=== PATIENT | male | born 1955 | race African-American/Black ===

== ENCOUNTER → 2016-10-12 | Outpatient (CLI) | payer OTHER | LOC: NM 07:29 | PROVIDERS: ATTEND Internal Medicine Cardiovascular Disease | DX: Z53.8 Procedure and treatment not carried out for other reasons (principal) ==

== ENCOUNTER → 2016-10-20 | Outpatient (CLI) | payer OTHER ==
--- NOTE | 2016-10-21 10:36 | CARD ---
APPROVED REPORT INDICATION Abnormal echo PROCEDURE The patient underwent an exercise Stress Test using the Geoffrey protocol. Blood pressure, heart rate, a nd EKG were monitored. An Echocardiogram was performed by environmental health technician in four stages in quad fashion. At peak stress four se lected images were obtained and placed side by side with resting images for comparison. STRESS ECHO FINDINGS The resting Echocardiogram showed normal left ventricular contractility with an estimated Ejection Fr action of about 60 %. Normal augmentation of myocardial wall segments using a 16 segment model. INTERPRETATION Stress EKG Conclusion: Baseline EKG showed sinus rhythm. No ischemic changes at peak stress. No arr hythmias. RESTING ECG Rhythm: Sinus STRESS ECG Rhythm: Sinus Tachycardia Arrhythmias: None <Conclusion> Treadmill exercise stress echocardiogram did not show any evidence of ischemia or infarct. Normal left ventricle systolic function with ejection fraction estimated at 60%. Patient had good activity tolerance. Low risk for cardiac events.
== END | disposition home or self-care (01) ==
LOC: ECHO 08:57
PROVIDERS: ATTEND Internal Medicine Cardiovascular Disease
DX: F43.9 Reaction to severe stress, unspecified (principal); R94.31 Abnormal electrocardiogram [ECG] [EKG]
CPT/HCPCS: 93307; 93350

== ENCOUNTER 2020-07-06 16:09 | Emergency (ER) | payer OTHER ==
[~2020-07-06] VITALS: Ht 193 cm; Wt 82.0 kg
--- NOTE | 2020-07-06 16:18 | PHYS DOC ---
Adult General Chief Complaint Chief Complaint: ALTERED MENTAL STATUS HPI HPI Patient is a 65-year-old male presents emergency department via EMS, was diverted from [facility] in route. Patient was walking up the steps to get into his place of residence when he slipped on the wet cement and fell b ackward striking his head and had a brief loss of consciousness that was not witnessed. EMS states that the patient's neighbor heard him fall came out seeing him on the ground and called EMS. EMS production designer reports the patient was alert and oriented upon their arrival. Patient complains of back of head and back of neck pain. Patient denies any other injuries to his extremities, denies pain to his extremities, denies chest pain, shortness of breath, recent fever or chills. Patient denies any numbness or tingling, patient denies any visual deficits. Patient reports he has had neck surgery and brain surgery in the past however he states he feels okay now other than the pain to the back of his head and neck. Patient states that he is a cigarette smoker, drinks beer every day, does not use illicit drugs. Patient reports a past medical history of depression, polyps in his colon, PTSD, psoriasis, chronic headaches, decreased liver function, chronic heel pains, high blood pressure, hepatitis C, hypothyroidism, BPH, arthritis, coronary artery disease, carpal tunnel syndrome problems, chronic neck pain, cholesterol problems, vitamin D deficiency. (YOUNG TAVAREZ APRN) Review of Systems Review of Systems 14 body systems of review of systems have been reviewed. See HPI for pertinent positives and negative responses, otherwise all other systems are negative, nonpertinent or noncontributory. (YOUNG TAVAREZ APRN) Allergies Allergies Patient reports an allergy to tramadol, lisinopril, etodolac (YOUNG TAVAREZ APRN) Physical Exam Physical Exam Constitutional: Well developed, well nourished, no acute distress, non-toxic appearance. HENT: Normocephalic, atraumatic, bilateral external ears normal, oropharynx moist, no oral exudates, nose normal. No depressions of the skull appreciated, pain to the occipital area, skin surfaces intact, no lymphadenopathy appreciated of the head and neck. Eyes: PERRLA, EOMI, conjunctiva normal, no discharge. Neck: Normal range of motion, supple, no stridor, no nuchal rigidity, no men ingismus signs, however pain to palpation along C-spine, no crepitus appreciated, no bruising appreciated. Cardiovascular:Heart rate regular rhythm, no murmur, heart sounds S1-S2 Lungs & Thorax: Bilateral breath sounds clear to auscultation all lung ordonez. Abdomen: Bowel sounds normal, soft, no tenderness, no masses, no pulsatile masses. Skin: Warm, dry, no erythema, no rash. Back: No tenderness, no CVA tenderness. Extremities: No tenderness, no cyanosis, no clubbing, ROM intact, no edema. Neurologic: Alert and oriented X 3, normal motor function, normal sensory function, no focal deficits noted. Psychologic: Affect normal, judgement normal, mood normal. (YOUNG TAVAREZ APRN) EKG EKG [] (YOUNG TAVAREZ APRN) Radiology/Procedures Radiology/Procedures [] (YOUNG TAVAREZ APRN) Heart Score Risk Factors: Risk Factors: DM, Current or recent (<one month) smoker, HTN, HLP, family history of CAD, obesity. Risk Scores: Risk Factors: DM, Current or recent (<one month) smoker, HTN, HLP, family history of CAD, obesity. (YOUNG TAVAREZ APRN) Course & Med Decision Making Course & Med Decision Making Pertinent Labs and Imaging studies reviewed. (See chart for details) 65-year-old male, vital signs reviewed, presents to the emergency department after a slip and fall, hitting the back of his head and having a brief loss of consciousness. A CT scan of the head and neck was ordered. CT scan negative for acute process, upon reexamination of the patient, patient states that he feels much better, patient refused offered pain medications, patient states that he is ready to go home. Patient remains in nontoxic appearance, is alert and oriented x3. Discussed findings with patient, gave head injury precautions, concussion symptoms precautions, patient gave verbal understanding of home care, [facility], return to emergency department precautions and concerns, patient had no further questions or concerns he was discharged home. (YOUNG TAVAREZ APRN) Course & Med Decision Making I did not see or evaluate patient. Did not discuss patient with SAMPLE CARD MAKER. Going over the note, discussed with SAMPLE CARD MAKER if patient were to follow-up a more extensive work- up including C-spine, EKG and troponin, and basic labs might be a good idea to evaluate for anemia, electrolyte disturbance and or possibly just dehydration. From what I understand patient was anxious to go home and was declining work-up. (BRIONNA MITCHELL MD) Dragon Disclaimer Dragon Disclaimer This electronic medical record was generated, in whole or in part, using a voice recognition dictation system. (YOUNG TAVAREZ APRN) Departure Departure: Impression: Primary Impression: Fall (on) (from) other stairs and steps, initial encounter Additional Impression: Head injury, closed, with concussion Disposition: DC HOME SELF CARE/HOMELESS Condition: GOOD Referrals: JONAH MITCHELL (PCP) Patient Instructions: Concussion and Brain Injury Additional Instructions: Please follow-up with your doctor at the [facility] for further evaluation of this concussive head injury. Return to the emergency department for worsening symptoms or other concerns. EMERGENCY DEPARTMENT GENERAL DISCHARGE INSTRUCTIONS Thank you for coming to [facility] (ED) today and trusting us with you care. We trust that you had a positivie experience in our Emergency Department. If you wish to speak to the department management, you may call the director at [phone]. YOUR FOLLOW UP INSTRUCTIONS ARE FOLLOWS: 1. Do you have a private Doctor? If you do not have a private doctor, please ask for a resource list of physicians or clinics that may be able to assist you with follow up care. 2. The Emergency Physician has interpreted your x-rays. The X-Ray specialist will also review them. If there is a change in the findings, you will be notified in 48 hours when at all possible. 3. A lab test or culture has been done, your results will be reviewed and you will be notified if you need a change in treatment. ADDITIONAL INSTRUCTIONS AND INFORMATION: 1. Your care today has been supervised by a physician who is specially trained in emergency care. Many problems require more than one evaluation for a complete diagnosis and treatment. We recommend that you schedule your follow up appointment as recommended to ensure complete treatment of you illness or injury. If you are unable to obtain follow up care and continue to have a problem, or if your condition worsens, we recommend that you return to the ED. 2. We are not able to safely determine your condition over the phone nor are we able to give sound medical advice over the phone. For these safety reasons, if you call for medical advice we will ask you to come to the ED for further evaluation. 3. If you have any questions regarding these discharge instructions please call the ED at [phone]. SAFETY INFORMATION: In the interest of safety, wellness, and injury prevention; we encourage you to wear your sealbelt, if you smoke; quite smoking, and we encourage family to use a protective helmet for bicycling and other sporting events that present an increased risk for head injury. IF YOUR SYMPTOMS WORSEN OR NEW SYMPTOMS DEVELOP, OR YOU HAVE CONCERNS ABOUT YOUR CONDITION; OR IF YOUR CONDITION WORSENS WHILE YOU ARE WAITING FOR YOUR FOLLOW UP APPOINTMENT; EITHER CONTACT YOUR PRIMARY CARE DOCTOR, THE PHYSICIAN WHOSE NAME AND NUMBER YOU WERE GIVEN, OR RETURN TO THE ED IMMEDIATELY. Problem Qualifiers Additional Impression: Head injury, closed, with concussion Encounter type: initial encounter Loss of consciousness presence/duration: with LOC of unspecified duration Qualified Codes: S06.0X9A - Concussion with loss of consciousness of unspecified duration, initial encounter YOUNG TAVAREZ APRN Jul 06, 2020 16:18 BRIONNA MITCHELL MD Jul 06, 2020 21:26
--- NOTE | 2020-07-06 17:51 | RAD ---
EXAM: Head and cervical spine CT without contrast. HISTORY: Loss of consciousness. TECHNIQUE: Computed tomographic images of the head and cervical spine were obtained without contrast. *One or more of the following individualized dose reduction techniques were utilized for this examina tion: 1. Automated exposure control. 2. Adjustment of the mA and/or kV according to patient size. 3. Use of iterative reconstruction technique. COMPARISON: None. FINDINGS: Head: There is encephalomalacia likely due to chronic infarction involving the right caudate nucleus and adjacent anterior medial frontal lobe, the left greater than right parietal lobes and bilateral o ccipital lobes. There are posterior craniotomy changes. There is no acute hemorrhage. There is no mas s effect or midline shift. There are cerebral white matter changes which are likely due to chronic sm all vessel disease. The orbits are unremarkable. There is ethmoid sinus mucosal thickening. The masto id air cells are clear. Cervical spine: There is a laminectomy decompression at C3-C4. There is minimal anterolisthesis of C5 on C6 and C6 on C7. There is multilevel endplate remodeling and disc space narrowing. There is relat luna preservation of the disc space at C5-C6. There are multiple endplate Schmorl's nodes. There is ad vanced facet arthropathy at multiple levels. The combination of degenerative changes results in mild right foraminal stenosis at C3-C4 and moderate right foraminal stenosis C4-C5. IMPRESSION: 1. No acute intracranial finding or evidence of acute cervical spine trauma. 2. 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 There is posterior calvarial cranio florian changes. The possibility of posterior cerebral changes due to chronic trauma is not excluded. 3. Cerebral white matter changes, likely due to chronic small vessel disease. 4. Postoperative and degenerative change involving the cervical spine, described above. Electronically signed by: Alexsandra Mascorro MD (07/06/2020 5:31 PM) [facility]
[2020-07-06 18:10] VITALS: BP 149/82
== END 2020-07-06 18:50 | disposition home or self-care (01) ==
LOC: ER 16:09
DX: S06.0X9A Concussion with loss of consciousness of unspecified duration, initial encounter (principal); M54.2 Cervicalgia; W10.8XXA Fall (on) (from) other stairs and steps, initial encounter; Y93.01 Activity, walking, marching and hiking; Y92.89 Other specified places as the place of occurrence of the external cause; Y99.8 Other external cause status
CPT/HCPCS: 70450; 72125; 99285